=== PATIENT | male | born 1980 | race Caucasian/White ===

== ENCOUNTER 2017-04-19 12:16 | Emergency (ER) | payer OTHER ==
[2017-04-19] MEDS ORDERED: Lidocaine 1% PF 5 ML VIAL ONE (12:24)
== END 2017-04-19 13:00 | disposition home or self-care (01) ==
LOC: SCSER 12:16
DX: S01.511A Laceration without foreign body of lip, initial encounter (principal); S01.81XA Laceration without foreign body of other part of head, initial encounter; S01.512A Laceration without foreign body of oral cavity, initial encounter; Y04.2XXA Assault by strike against or bumped into by another person, initial encounter
CPT/HCPCS: 12013; J2001

== ENCOUNTER 2021-09-19 16:52 | Emergency (ER) | payer SELFPAY ==
[2021-09-19] MEDS ORDERED: Bacitracin 1 PK ONE (18:38)
[2021-09-19] MEDS ORDERED: Lidocaine 1% PF 5 ML VIAL ONE (18:38)
[2021-09-19] MEDS ORDERED: Boostrix 0.5 ML (Tdap) VIAL ONE (18:38)
== END 2021-09-19 19:41 ==
LOC: ERS 16:52
DX: S61.412A Laceration without foreign body of left hand, initial encounter (principal); S61.411A Laceration without foreign body of right hand, initial encounter; S51.012A Laceration without foreign body of left elbow, initial encounter; F17.210 Nicotine dependence, cigarettes, uncomplicated; W25.XXXA Contact with sharp glass, initial encounter
CPT/HCPCS: 12002; 90715